=== PATIENT | female | born 1950 | race Caucasian/White ===

== ENCOUNTER → 2021-07-28 | Day surgery (SDC) | payer MEDICARE, BC ==
[~2021-07-28] MED LIST: ALBUTEROL0.63 MG/3 NEB; B&O 60MG R/S 60 MG SUPP PR ONE; DEXAMETHASONE SOD PHOS INJ 4 MG/ML SDV ONE; EPHEDRINE SULFATE INJ 50 MG/ML VIAL ONE; FENTANYL CITRATE/PF 100MCG/2 ML INJ ONE; HCTZ PO; HUMALOG MI100 UNITS/ SC; HUMULIN 70100 UNIT/1 SC; IOPAMIDOL 300MG/ML 50ML INFUS..BTL IV ONE; LEVOTHYROXINE50 MCG PO; LEXAPRO20 MG PO; LIDOCAINE HCL 2% LOCAL INJ 5 ML SDV VIAL INJ ONE; LOSARTAN POTASS25 MG PO; MIDAZOLAM HCL 2 MG/2 ML VIAL ONE; NEXIUM40 MG PO; ONDANSETRON HCL INJ 2MG/ML 2ML 2 MG/ML VIAL ONE; ONDANSETRON ODT4 MG PO; OZEMPIC0.25 MG/0. SC; POVIDONE IODINE 0.05% 0.05 % ML PO ONE; PROPOFOL IV EMULSION 10 MG/ML 20 ML VIAL ONE; ROPINIROLE HCL1 MG PO; SEVOFLURANE INHAL SOLN 250 ML PEN BTL ONE; SODIUM CHLORIDE 0.9% 50ML 50 ML ONE
[2021-07-28 07:03] LABS: BASOPHILS # (AUTO) 0.1 (0.0-0.1); BASOPHILS % 0.7 % (0.0-1.0); EOSINOPHILS # (AUTO) 0.3 (0.0-0.4); EOSINOPHILS % 3.9 % (0.0-6.0); HEMATOCRIT 38.9 % (34.2-44.1); LYMPHOCYTES # (AUTO) 1.6 (1.0-3.2); LYMPHOCYTES % 23.2 % (18.0-39.1); MEAN CORPUSCULAR HEMOGLOBIN 28.6 pg (28-32); MEAN CORPUSCULAR HGB CONC 33.4 g/dL (31-35); MEAN CORPUSCULAR VOLUME 85.7 fL (81-99); MONOCYTES # (AUTO) 0.7 (0.2-0.8); MONOCYTES % 10.6 % (4.4-11.3); NEUTROPHILS # (AUTO) 4.2 (2.1-6.9); NEUTROPHILS % 60.6 % (38.7-80.0); PLATELET COUNT 222 x10e3/uL (140-360); RED BLOOD COUNT 4.54 x10e6/uL (3.6-5.1)
[2021-07-28 07:23] LABS: ANION GAP 13.5 mmol/L (8-16); CALCIUM 9.7 mg/dL (8.4-10.2); CREATININE, SERUM 0.9 mg/dL (0.57-1.11); POTASSIUM 3.5 mmol/L (3.5-5.1)
[2021-07-28 09:25] VITALS: BP 157/74
== END | disposition home or self-care (01) ==
LOC: OR 06:21
PROVIDERS: ATTEND Urology
DX: N20.1 Calculus of ureter (principal); Z46.6 Encounter for fitting and adjustment of urinary device; N13.30 Unspecified hydronephrosis; N81.10 Cystocele, unspecified; E11.9 Type 2 diabetes mellitus without complications; E03.9 Hypothyroidism, unspecified; K21.9 Gastro-esophageal reflux disease without esophagitis; I10 Essential (primary) hypertension; R00.1 Bradycardia, unspecified; E78.5 Hyperlipidemia, unspecified; J45.909 Unspecified asthma, uncomplicated; F41.9 Anxiety disorder, unspecified; Z88.8 Allergy status to other drugs, medicaments and biological substances; Z20.822 Contact with and (suspected) exposure to COVID-19; Z79.4 Long term (current) use of insulin; Z79.899 Other long term (current) drug therapy
CPT/HCPCS: 36415; 52353; 71046; 74420; 80048; 82948; 85025; 93005; C1758; C1769; J0690; J1100; J2001; J2250; J2405; J2704; J3010; Q9967; U0002